=== PATIENT | male | born 1955 | race Hispanic/Latino ===

== ENCOUNTER 2018-01-09 02:17 | Emergency (ER) | payer SELFPAY ==
[2018-01-09] MEDS ORDERED: Albuterol 0.083% Inhal Sol (2.5 mg/3 mL) UD IH STA (03:09)
[2018-01-09] MEDS ORDERED: MethylPREDNISolone 40 mg Vial IVP STA (03:09)
[2018-01-09] MEDS ORDERED: Albuterol 0.083% Inhal Sol (2.5 mg/3 mL) UD ONE (03:49)
[2018-01-09] MEDS ORDERED: MethylPREDNISolone 40 mg Vial ONE (03:58)
[2018-01-09 04:06] LABS: BASO # 0.1 K/uL (0.0-0.2); EOS # 0.7 K/uL (0.0-0.7); EOS % 5.5 % (0.0-4.0); HEMOGLOBIN 15.5 g/dL (12.0-18.0); LYMPH # 1.6 K/uL (1.0-4.3); LYMPH % 12.9 % (20.0-40.0); MEAN CELL VOLUME 93.9 fL (80.0-94.0); MEAN CORPUSCULAR HEMOGLOBIN 32.8 pg (27.0-31.0); MEAN PLATELET VOLUME 9.1 fL (7.2-11.7); MONO # 0.8 K/uL (0.0-0.8); MONO % 6.7 % (0.0-10.0); NEUT # 8.9 K/uL (1.8-7.0); NEUT % 73.9 % (50.0-75.0); NRBC % 0.2 % (0.0-2.0); RBC 4.72 Mil/uL (4.40-5.90); RED CELL DISTRIBUTION WIDTH 12.5 % (11.5-14.5)
--- NOTE | 2018-01-09 05:09 | C.PDOC ---
History Of Present Illness 62 year old male presents to the ED for evaluation of a cough which began yesterday. Patient notes symptoms are worse when lying down. PT notes he had similar episode last month, was treated and resolution till yesterday. Patient reports history of HTN with unknown medication twice/day, but usually only takes the medication once/day. Patient has not taken his medication today. He denies fever, chills, chest pain, shortness of breath, headache, nausea, vomiting, extremity numbness/weakness. Time Seen by Provider: 01/09/18 03:06 Chief Complaint (Nursing): Cough, Cold, Congestion History Per: Patient History/Exam Limitations: no limitations Onset/Duration Of Symptoms: Hrs Current Symptoms Are (Timing): Still Present Associated Symptoms: Cough. denies: Fever, Chills, Nausea, Vomiting Additional History Per: Patient Past Medical History Reviewed: Historical Data, Nursing Documentation, Vital Signs Vital Signs: Last Vital Signs Temp 97.4 F L 01/09/18 06:06 Pulse 83 01/09/18 06:06 Resp 22 01/09/18 06:06 BP 127/76 01/09/18 06:06 Pulse Ox 95 01/14/18 21:33 - Medical History PMH: HTN Surgical History: No Surg Hx Family History: States: Unknown Family Hx - Social History Hx Alcohol Use: Yes Hx Substance Use: No - Immunization History Hx Tetanus Toxoid Vaccination: No Hx Influenza Vaccination: No Hx Pneumococcal Vaccination: No Review Of Systems Cardiovascular: Negative for: Chest Pain Respiratory: Positive for: Cough. Negative for: Shortness of Breath Gastrointestinal: Negative for: Nausea, Vomiting Neurological: Negative for: Weakness, Numbness, Headache Physical Exam - Physical Exam Appears: Well, Non-toxic, No Acute Distress Skin: Normal Color, Warm, Dry Head: Atraumatic, Normacephalic Eye(s): bilateral: Normal Inspection, EOMI Nose: Normal Oral Mucosa: Moist Throat: Normal, No Erythema, No Exudate Neck: Normal ROM, Supple Chest: Symmetrical, No Deformity, No Tenderness Cardiovascular: Rhythm Regular Respiratory: No Accessory Muscle Use, No Rales, Rhonchi, No Wheezing, Other ( occasional cough noted ) Gastrointestinal/Abdominal: Soft, Other (obese) Extremity: Normal ROM, Capillary Refill (less than 2 seconds ) Neurological/Psych: Oriented x3, Normal Speech, Normal Cognition ED Course And Treatment - Laboratory Results Result Diagrams: 01/09/18 03:57 01/09/18 04:42 ECG: Interpreted By Me, Viewed By Me ECG Rhythm: Sinus Tachycardia Rate From EC O2 Sat by Pulse Oximetry: 95 (on RA) Pulse Ox Interpretation: Normal Progress Note: Bloodwork, CXR, EKG ordered and reviewed. Solu-Medrol IVP and Albuterol INH adminstered. On re-evaluation, pt notes symptoms improved. No sob, chest pain, fever. Pt was offered admission for further evaluation, but his and him declined. Pt notes he will f/u with his pmd later today. Case discussed with Dr Boucher, agreed upon plan and discharge. Disposition - Disposition Disposition: HOME/ ROUTINE Disposition Time: 06:00 Condition: STABLE Additional Instructions: Follow up with your doctor later today. Return to ER if symptoms persist or worsen. Prescriptions: Albuterol HFA [Ventolin HFA 90 mcg/actuation (8 g)] 2 puff IH [id number] #1 puff Azithromycin [Zithromax] 250 mg PO DAILY #6 tab predniSONE [Prednisone] 40 mg PO DAILY #8 tab Instructions: Acute Bronchitis Forms: (AMA) Informed Refusal, [facility] (Lithuanian) - Clinical Impression Clinical Impression: Bronchitis - PA / SORTER PACKER / Resident Statement MD/DO has reviewed & agrees with the documentation as recorded. - Scribe Statement The provider has reviewed the documentation as recorded by the Scribe (Ghazala Thomas) All medical record entries made by the Scribe were at my direction and personally dictated by me. I have reviewed the chart and agree that the record accurately reflects my personal performance of the history, physical exam, medical decision making, and the department course for this patient. I have also personally directed, reviewed, and agree with the discharge instructions and disposition.
[2018-01-09 05:19] LABS: B-TYPE NATRIURETIC PEPTIDE 104 pg/mL (0-900)
[2018-01-09 05:42] LABS: ALB/GLOB RATIO 1.1 (1.0-2.1); ALBUMIN 4.5 g/dL (3.5-5.0); ALT/SGPT 38 U/L (21-72); AST/SGOT 33 U/L (17-59); BLOOD UREA NITROGEN 12 mg/dL (9-20); CALCIUM 9.2 mg/dl (8.6-10.4); CK-MB 1.52 ng/mL (0.0-3.38); GFR AFRICAN-AMERICAN > 60; GFR NON-AFRICAN AMERICAN > 60
[2018-01-09 06:08] VITALS: BP 127/76; PULSE 83; RESP 22; TEMP 97.4
--- NOTE | 2018-01-10 13:47 | RAD ---
HISTORY: SOB COMPARISON: Chest x-ray performed 04/14/15 TECHNIQUE: Chest PA and lateral FINDINGS: LUNGS: Mild left basilar atelectasis/ infiltrate. Chronic interstitial markings. Please note that chest x-ray has limited sensitivity for the detection of pulmonary masses. PLEURA: No significant pleural effusion identified. No definite pneumothorax . CARDIOVASCULAR: Cardiomegaly. OSSEOUS STRUCTURES: Degenerative changes of the spine. VISUALIZED UPPER ABDOMEN: Unremarkable. OTHER FINDINGS: None. IMPRESSION: Mild left basilar atelectasis/ infiltrate. Chronic interstitial markings. Cardiomegaly.
[2018-01-14 21:34] VITALS: O2SAT 95
--- NOTE | 2018-01-15 19:06 | CARD ---
APPROVED REPORT EKG Measurement Heart [id number] <Conclusion> Sinus tachycardia Possible Left atrial enlargement Borderline ECG
== END 2018-01-09 06:37 | disposition home or self-care (01) ==
LOC: C.ER 02:17
DX: J40 Bronchitis, not specified as acute or chronic (principal)
CPT/HCPCS: 71046; 80053; 82553; 83880; 84484; 85025; 96374; 99283; J2920